=== PATIENT | male | born 1930 | race Caucasian/White ===

== ENCOUNTER 2020-02-22 04:36 | Inpatient (IN) ==
[2020-02-22] MEDS ORDERED: Nitroglycerin 0.4 MG TAB.SUBL SL PRN (04:45)
[2020-02-22] MEDS ORDERED: Aspirin 81 MG TAB.CHEW PO STA (04:45)
[2020-02-22 05:07] LABS: Basophils # 0.1 K/mcL (0.0-0.2); Basophils % 0.9 %; Eosinophils # 0.1 K/mcL (0.0-0.6); Eosinophils % 1.7 %; Hematocrit 47.2 % (37.5-50.1); Immature Granulocytes % 0.3 % (0-4); Lymphocytes # 1.6 K/mcL (0.6-4.6); Lymphocytes % 20.4 %; Mean Corpuscular HGB Conc 31.8 g/dL (31.6-35.5); Mean Corpuscular Hemoglobin 29.4 pg (28.0-33.3); Mean Corpuscular Volume 92.4 fL (83.0-100.0); Mean Platelet Volume 9.8 fL (9.4-12.4); Monocytes # 0.7 K/mcL (0.0-1.3); Monocytes % 9.1 %; Neutrophils # 5.2 K/mcL (1.6-8.9); Platelet Count 301 K/mcL (140-400); Red Blood Count 5.11 M/mcL (4.19-5.50); Segmented Neutrophils % 67.6 %; White Blood Count 7.7 K/mcL (4.3-11.1)
[2020-02-22 05:08] LABS: Prothrombin Time 11.9 Seconds (9.4-12.1)
[2020-02-22 05:10] LABS: Activated Partial Thrombo Time 33.1 Seconds (26.0-36.0)
[2020-02-22 05:23] LABS: BUN/Creatinine Ratio 25 (6-26); Blood Urea Nitrogen 26 mg/dL (8-23); Calcium 9.3 mg/dL (8.6-10.3); Carbon Dioxide 32 mEq/L (23-29); Chloride 103 mEq/L (98-107); Glucose 104 mg/dL (70-105); Osmolality,Calculated 299 (280-300); Potassium 3.6 mEq/L (3.5-5.1); Sodium 142 mEq/L (136-145); eGFR For African Americans > 60 (> 60); eGFR For Non-African Americans > 60 (> 60)
[2020-02-22 05:29] LABS: Troponin I 0.92 ng/mL (< 0.04)
[2020-02-22] MEDS ORDERED: *HR* Heparin 5,000 UNIT/ML VIAL IVP ONE (05:47)
[2020-02-22] MEDS ORDERED: *HR* Heparin 5,000 UNIT/ML VIAL IVP PRN ×2 (05:47)
[2020-02-22] MEDS ORDERED: Ondansetron 4 MG/2 ML VIAL IVP PRN (05:59)
[2020-02-22] MEDS ORDERED: Acetaminophen 325 MG TABLET PO PRN (05:59)
[2020-02-22] MEDS ORDERED: Naloxone 0.4 MG/ML INJ IVP PRN (05:59)
[2020-02-22] MEDS ORDERED: Heparin 25,000UNIT/250ML 1/2NS 25,000 UNIT/250 ML IV.SOLN IVC SCH (06:00)
[2020-02-22] MEDS ORDERED: Perflutren Lipid Microsphere 1.3 ML in 0.9 % Sodium Chloride 8.7 ML IVP PRN (06:47)
[2020-02-22 10:17] LABS: Estimated Average Glucose 126 mg/dl
[2020-02-22 10:19] LABS: Chol/HDL Ratio 5.3 (0-4.9)
[2020-02-22 10:23] LABS: Troponin I 1.17 ng/mL (< 0.04)
[2020-02-22] MEDS ORDERED: *HR* Midazolam HCl 2 MG/2 ML VIAL ONE (13:47)
[2020-02-22] MEDS ORDERED: *HR* FentaNYL (PF) 100 MCG/2 ML VIAL ONE (13:47)
[2020-02-22] MEDS ORDERED: Heparin 1,000 UNITS/500 mL 500 ML ONE (13:47)
[2020-02-22] MEDS ORDERED: *HR* Heparin 10,000 UNIT/10 ML VIAL ONE (13:47)
[2020-02-22] MEDS ORDERED: 0.9 % Sodium Chloride 1,000 ML ONE (13:47)
[2020-02-22] MEDS ORDERED: Nitroglycerin 1,000 MCG/10 ML VIAL IV ONE (13:48)
[2020-02-22] MEDS ORDERED: ISOVUE-370 200 ML INFUS..BTL ONE ×2 (13:48→14:40)
[2020-02-22] MEDS ORDERED: *HR* Bivalirudin 250 MG VIAL IVC ONE (14:39)
[2020-02-22] MEDS ORDERED: *HR* Atropine Sulfate 1 MG/10 ML SYRINGE ONE (14:40)
[2020-02-22] MEDS ORDERED: *HR* Ticagrelor 90 MG TABLET ONE (14:58)
[2020-02-23 01:17] LABS: Basophils # 0.1 K/mcL (0.0-0.2); Basophils % 0.5 %; Eosinophils # 0.1 K/mcL (0.0-0.6); Eosinophils % 0.8 %; Hematocrit 43.8 % (37.5-50.1); Hemoglobin 14.1 g/dL (12.9-16.9); Immature Granulocytes % 0.4 % (0-4); Lymphocytes # 0.8 K/mcL (0.6-4.6); Lymphocytes % 8.8 %; Mean Corpuscular HGB Conc 32.2 g/dL (31.6-35.5); Mean Corpuscular Volume 93.2 fL (83.0-100.0); Mean Platelet Volume 9.4 fL (9.4-12.4); Monocytes # 0.8 K/mcL (0.0-1.3); Monocytes % 8.2 %; Neutrophils # 7.8 K/mcL (1.6-8.9); Platelet Count 273 K/mcL (140-400); Red Cell Distribution Width 13.1 % (11.5-14.5); Segmented Neutrophils % 81.3 %; White Blood Count 9.6 K/mcL (4.3-11.1)
[2020-02-23 01:38] LABS: BUN/Creatinine Ratio 21 (6-26); Blood Urea Nitrogen 26 mg/dL (8-23); Calcium 9.1 mg/dL (8.6-10.3); Carbon Dioxide 27 mEq/L (23-29); Chloride 105 mEq/L (98-107); Glucose 92 mg/dL (70-105); Magnesium 2.3 mg/dL (1.6-2.6); Osmolality,Calculated 290 (280-300); Potassium 4.8 mEq/L (3.5-5.1); Sodium 138 mEq/L (136-145); eGFR For African Americans > 60 (> 60); eGFR For Non-African Americans 56 (> 60)
[2020-02-23] MEDS: Aspirin 81 MG TAB.CHEW PO SCH ×2 (08:25→08:30)
[2020-02-23] MEDS ORDERED: *HR* Ticagrelor 90 MG TABLET PO SCH (09:00)
[2020-02-23 10:30] VITALS: BP 151/79
== END 2020-02-23 11:42 | disposition home or self-care (01) | DRG 247 ==
LOC: SUATTDRO → EMEROOARM 04:36 → 3BNU 04:36 → SUATTDRO 06:40 → 3BNU 07:35
PROVIDERS: ADMIT Pharmacist; ATTEND Internal Medicine